=== PATIENT | female | born 1995 | race American Indian/Alaskan Native ===

== ENCOUNTER 2018-01-13 21:26 | Emergency (ER) | payer SELFPAY ==
[2018-01-13] MEDS ORDERED: TYLENOL ONE (22:37)
[2018-01-13] MEDS ORDERED: TYLENOL PO ONE (22:37)
[2018-01-13 23:03] LABS: Bilirubin,Urine NEG (Negative); Blood,Urine NEG (Negative); Color,Urine Yellow (Yellow); Mucus,Urine 1+ /HPF; Protein,Urine <15 mg/dL mg/dL (Negative); Urobilinogen,Urine < 2.0 mg/dL (<2.0)
[2018-01-13 23:10] LABS: HCG Qualitative,Urine Negative (Negative)
--- NOTE | 2018-01-13 23:50 | XRay Report ---
FINAL REPORT PROCEDURE: XR SPINE LUMBOSACRAL 2-3V TECHNIQUE: Lumbar spine radiographs, frontal and lateral views. CPT 05241 HISTORY: lower back pain COMPARISON: No prior studies are available for comparison. FINDINGS: Alignment: Normal . Vertebral body heights/Disk spaces: Normal . Fracture(s): None . Facets: Normal . Bone mineralization: Normal . IMPRESSION: Normal Examination
--- NOTE | 2018-01-14 02:34 | Emergency Department Report ---
ED General Adult HPI - General Chief complaint: Back Pain/Injury Stated complaint: LOWER BACK PAIN Time Seen by Provider: 01/14/18 01:30 Source: patient Mode of arrival: Ambulatory Limitations: No Limitations - History of Present Illness Initial comments: 22-year-old -[place] female comes in complaining of back pain and abdominal pain since Monday. Patient reports that she she has back pain that radiates to the abdominal. Patient reports that she is not had a bowel movement since Monday. She says she has nausea and no fever no chills. She reports that the pain can be sharp and achy intermittent better with lying on her stomach and movement makes it worse. Patient reports no past medical history currently takes no medications on a daily basis and has no known drug allergies. 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 -: days(s) (4) Location: back, abdomen Severity scale (0 -10): 6 Quality: aching, sharp Consistency: intermittent Improves with: rest (lying on stomach) Worsens with: movement Associated Symptoms: nausea/vomiting (no vomiting) Treatments Prior to Arrival: none - Related Data Previous Rx's Medication Instructions Recorded Last Taken Type Nitrofurantoin Monohyd/M-Cryst 100 mg PO BID #14 capsule 01/14/18 Unknown Rx [Macrobid 100 mg Capsule] traMADol [Ultram 50 MG tab] 50 mg PO Q6HR PRN #12 tablet 01/14/18 Unknown Rx Allergies Allergy/AdvReac Type Severity Reaction Status Date / Time No Known Allergies Allergy Verified 01/13/18 22:45 ED Review of Systems ROS: Stated complaint: LOWER BACK PAIN Other details as noted in HPI Constitutional: denies: chills, fever Eyes: denies: eye pain, eye discharge, vision change ENT: denies: ear pain, throat pain Respiratory: denies: cough, shortness of breath, wheezing Cardiovascular: denies: chest pain, palpitations Endocrine: no symptoms reported Gastrointestinal: abdominal pain, nausea Genitourinary: denies: urgency, dysuria, discharge Musculoskeletal: back pain Skin: denies: rash, lesions Neurological: denies: headache, weakness, paresthesias Psychiatric: denies: anxiety, depression Hematological/Lymphatic: denies: easy bleeding, easy bruising ED Past Medical Hx - Past Medical History Previous Medical History?: No - Surgical History Past Surgical History?: No - Social History Smoking Status: Never Smoker Substance Use Type: None - Medications Home Medications: Home Medications Medication Instructions Recorded Confirmed Last Taken Type Nitrofurantoin Monohyd/M-Cryst 100 mg PO BID #14 capsule 01/14/18 Unknown Rx [Macrobid 100 mg Capsule] traMADol [Ultram 50 MG tab] 50 mg PO Q6HR PRN #12 tablet 01/14/18 Unknown Rx ED Physical Exam - General Limitations: No Limitations General appearance: alert, in no apparent distress - Head Head exam: Present: atraumatic, normocephalic - Eye Eye exam: Present: normal appearance - ENT ENT exam: Present: mucous membranes moist - GI/Abdominal GI/Abdominal exam: Present: soft, normal bowel sounds. Absent: distended, tenderness - Extremities Exam Extremities exam: Present: normal inspection, full ROM - Back Exam Back exam: Present: normal inspection, full ROM, CVA tenderness (L) - Neurological Exam Neurological exam: Present: alert, oriented X3 - Psychiatric Psychiatric exam: Present: normal affect, normal mood - Skin Skin exam: Present: warm, dry, intact, normal color. Absent: rash ED Course Vital Signs 01/13/18 01/13/18 22:03 22:25 Temperature 98.5 F 98.5 F Pulse Rate 79 89 Respiratory 16 18 Rate Blood Pressure 118/75 118/75 O2 Sat by Pulse 100 100 Oximetry ED Medical Decision Making - Radiology Data Radiology results: report reviewed, image reviewed FINAL REPORT PROCEDURE: XR ABDOMEN 1V AP TECHNIQUE: Abdominal radiograph, single supine AP view. HISTORY: abdominal pain nausea COMPARISON: No prior studies are available for comparison. FINDINGS: Bowel gas pattern:Nonobstructive. Masses or calcifications:None. Bony structures:No significant abnormality. Other:None. IMPRESSION: No acute abnormality FINDINGS: Alignment: Normal . Vertebral body heights/Disk spaces: Normal . Fracture(s): None . Facets: Normal . Bone mineralization: Normal . IMPRESSION: Normal Examination Transcribed By: [facility] Dictated By: DARRICK ASIF MD Electronically Authenticated By: DARRICK ASIF MD Signed Date/Time: 01/13/18 2969 - Medical Decision Making Patient's been evaluated by this provider fast track. UA urine culture back x- ray KUB ordered. Critical care attestation.: If time is entered above; I have spent that time in minutes in the direct care of this critically ill patient, excluding procedure time. ED Disposition Clinical Impression: Back pain Qualifiers: Back pain location: thoracic back pain Chronicity: acute Back pain laterality: bilateral Qualified Code(s): M54.6 - Pain in thoracic spine UTI (urinary tract infection) Qualifiers: Urinary tract infection type: site unspecified Hematuria presence: without hematuria Qualified Code(s): N39.0 - Urinary tract infection, site not specified Disposition: TO HOME OR SELFCARE Is pt being admited?: No Does the pt Need Aspirin: No Condition: Stable Instructions: Urinary Tract Infection in Women (ED), Acute Low Back Pain (ED) Additional Instructions: Please complete antibiotics as prescribed. Take pain medication as prescribed. Symptoms persist or gets worse please follow up with her primary care provider. Prescriptions: Nitrofurantoin Monohyd/M-Cryst [Macrobid 100 mg Capsule] 100 mg PO BID #14 capsule traMADol [Ultram 50 MG tab] 50 mg PO Q6HR PRN #12 tablet PRN Reason: Pain Referrals: PRIMARY CARE, [Primary Care Provider] - 3-5 Days [facility] [Provider Group] - 3-5 Days Forms: Accompanied Note, Work/School Release Form(ED)
--- NOTE | 2018-01-14 03:02 | XRay Report ---
FINAL REPORT PROCEDURE: XR ABDOMEN 1V AP TECHNIQUE: Abdominal radiograph, single supine AP view. HISTORY: abdominal pain nausea COMPARISON: No prior studies are available for comparison. FINDINGS: Bowel gas pattern:Nonobstructive. Masses or calcifications:None. Bony structures:No significant abnormality. Other:None. IMPRESSION: No acute abnormality
[2018-01-14 04:07] VITALS: BP 111/57
== END 2018-01-14 03:30 | disposition home or self-care (01) ==
LOC: ED 21:26
DX: N39.0 Urinary tract infection, site not specified (principal)
CPT/HCPCS: 72100; 74018; 81001; 81025; 99284

== ENCOUNTER 2019-04-03 08:17 | Inpatient (IN) | payer MEDICAID ==
[2019-04-03] MEDS ORDERED: XYLOCAINE 2% INFILTRATI ONE ×2 (09:26→14:11)
[2019-04-03] MEDS ORDERED: BRETHINE SUB-Q PRN (09:26)
[2019-04-03] MEDS ORDERED: SUBLIMAZE IV PRN (09:26)
[2019-04-03] MEDS ORDERED: STADOL IV PRN (09:26)
[2019-04-03] MEDS ORDERED: ZOFRAN IV PRN ×2 (09:26→15:00)
[2019-04-03] MEDS ORDERED: AMPICILLIN/NS 2 GM/100 ML 2 GM/100 ML BAG IV ONE (09:26)
[2019-04-03] MEDS ORDERED: BRETHINE IVP PRN (09:26)
[2019-04-03] MEDS ORDERED: MINERAL OIL PO PRN (09:26)
--- NOTE | 2019-04-03 09:26 | History and Physical Report ---
History of Present Illness Date of examination: 04/03/19 Chief complaint: SROM clear fluid @ 0600 History of present illness: Pt is a 23yo BF EDC 04/06/19; EGA 39 4/7 weeks presents to L&D complaining of SROM clear fluid @ 0600 followed by irregular contractions. She received late care at [facility] since 36 weeks, but course has been unremarkable. records are available and GBS is Negative. Past History Past Medical History: no pertinent history Past Surgical History: no surgical history Social history: no significant social history, single - Obstetrical History Expected Date of Delivery: 04/06/19 Actual Gestation: 39 Week(s) 4 Day(s) Medications and Allergies Allergies Allergy/AdvReac Type Severity Reaction Status Date / Time No Known Allergies Allergy Verified 01/13/18 22:45 Home Medications Medication Instructions Recorded Confirmed Last Taken Type Vit-Fe Fumar-FA [ 1 tab PO QDAY 04/03/19 04/03/19 Unknown History Vitamin] Active Meds: Active Medications Lactated Ringer's (Lactated Ringers) 1,000 mls @ 125 mls/hr IV DIRECT KIN Review of Systems All systems: negative - Vital Signs Vital signs: Vital Signs Pulse BP 91 H 125/81 04/03/19 09:02 04/03/19 09:02 Temp Pulse Resp BP Pulse Ox 81 118/79 04/03/19 09:17 04/03/19 09:17 - Physical Exam Breasts: Positive: deferred Cardiovascular: Regular rate Lungs: Positive: Clear to auscultation Abdomen: Positive: normal appearance Genitourinary (Female): Positive: normal external genitalia Vagina: Positive: normal moisture Uterus: Positive: enlarged Extremities: Positive: normal - Obstetrical FHR: category 1 Uterine Contraction Monitor Mode: External Cervical Dilatation: 4 (per nurse) Cervical Effacement Percentage: 80 (per nurse) station: -1 Uterine Contraction Pattern: Regular Uterine Tone Measurement Phase: Contraction Uterine Contraction Intensity: Moderate Results Result Diagrams: 04/03/19 09:30 All other labs normal. Assessment and Plan - Patient Problems (1) 39 weeks gestation of Onset Date: 04/03/19 Current Visit: Yes Status: Acute Plan to address problem: A: IUP @ 39 4/7 weeks in labor P: Admit to L&D for expectant vaginal delivery
[2019-04-03 09:57] LABS: Basophils % (Auto) 0.5 % (0.0-1.8); Eosinophils # (Auto) 0.1 K/mm3 (0.0-0.4); Eosinophils % (Auto) 0.6 % (0.0-4.3); Hemoglobin 12.5 gm/dl (10.1-14.3); Lymphocytes # (Auto) 2.4 K/mm3 (1.2-5.4); Mean Corpuscular HGB Conc 35 % (30-34); Mean Corpuscular Volume 78 fl (79-97); Monocytes # (Auto) 0.8 K/mm3 (0.0-0.8); Platelet Count 334 K/mm3 (140-440); Red Blood Count 4.62 M/mm3 (3.65-5.03); Red Cell Distribution Width 15.1 % (13.2-15.2)
[2019-04-03] MEDS ORDERED: PITOCin/NS 30 UNIT/500ML 30 UNITS/500 ML BAG IV SCH ×2 (10:00)
[2019-04-03] MEDS ORDERED: PITOCin/NS 20 UNIT/1000ML DRIP 20 UNITS/1,000 ML BAG IV SCH ×2 (10:00→15:00)
[2019-04-03] MEDS ORDERED: LACTATED RINGERS 1,000 ML IV SCH ×2 (10:00)
[2019-04-03] MEDS ORDERED: AMPICILLIN/NS 1 GM/50 ML 1 GM/50 ML BAG IV SCH (13:27)
--- NOTE | 2019-04-03 14:25 | Procedure Note ---
OB Delivery Note - Delivery Date of Delivery: 04/03/19 Surgeon: RAMIN LIMA Estimated blood loss: other (150cc) - Vaginal Delivery presentation: vertex Delivery position: OA Intrapartum events: PROM->1hr before delivery, mult.variable deceleratio Delivery induction: none Delivery augmentation: pitocin Delivery monitor: external FHT, external uterine Route of delivery: Delivery placenta: spontaneous Delivery cord: 3 umbilical vessels Episiotomy: none Delivery laceration: 1st degree (perineal) Delivery repair: vicryl Anesthesia: local Delivery comments: delivered OA and placed on Mom's chest for [id number] bonding and delayed cord clamping, cut by Dad - Infant A at 1 minute: 8 at 5 minutes: 9 Gender: Female (3101gms)
[2019-04-03] MEDS ORDERED: TUCKS PAD TP PRN (15:00)
[2019-04-03] MEDS ORDERED: PHENERGAN PR PRN (15:00)
[2019-04-03] MEDS ORDERED: DERMOPLAST TP PRN (15:00)
[2019-04-03] MEDS ORDERED: TYLENOL PO PRN (15:00)
[2019-04-03] MEDS ORDERED: SODIUM CHLORIDE FLUSH SYRINGE 10 ML IV PRN (15:00)
[2019-04-03] MEDS ORDERED: LANSINOH TP PRN (15:00)
[2019-04-03] MEDS ORDERED: PHENERGAN PO PRN (15:00)
[2019-04-03] MEDS ORDERED: BENADRYL PO PRN (15:00)
[2019-04-03] MEDS: IBUPROFEN PO SCH (16:40)
[2019-04-03] MEDS: FEOSOL PO SCH (21:51)
[2019-04-03] MEDS: COLACE PO SCH (21:51)
[2019-04-03] MEDS ORDERED: DULCOLAX PR PRN (22:00)
[2019-04-03] MEDS ORDERED: MILK OF MAGNESIA PO PRN (22:00)
[2019-04-04] MEDS: IBUPROFEN PO SCH ×3 (00:44→16:17)
[2019-04-04 01:14] LABS: Hematocrit 29.6 % (30.3-42.9); Hemoglobin 10.1 gm/dl (10.1-14.3)
[2019-04-04] MEDS ORDERED: BOOSTRIX IM ONE (06:00)
[2019-04-04] MEDS ORDERED: PRENATAL VITAMIN PO SCH (10:00)
[2019-04-04] MEDS: FEOSOL PO SCH (10:12)
[2019-04-04] MEDS: COLACE PO SCH (10:13)
[2019-04-04] MEDS: NORCO 5/325 PO PRN ×2 (10:16→16:16)
[2019-04-04] MEDS ORDERED: M-M-R II VACCINE SUB-Q ONE (11:00)
--- NOTE | 2019-04-04 14:03 | Progress Note ---
Assessment and Plan - Patient Problems (1) 39 weeks gestation of Onset Date: 04/03/19 Current Visit: Yes Status: Resolved (2) (normal spontaneous vaginal delivery) Onset Date: 04/04/19 Current Visit: Yes Status: Resolved Plan to address problem: A: S/P - PPD #1 Doing well Asymptomatic anemia - stable P: May go home today. Subjective - Subjective Date of service: 04/04/19 Principal diagnosis: s/p - PPD #1 Interval history: Pt is feeling well without complaints. Bleeding improved. Patient reports: appetite normal, voiding normally, pain well controlled, flatus, ambulating normally, no dizzy ambulation, no nauseated : doing well, nursing well, bottle feeding Objective - Vital Signs Latest vital signs: Vital Signs Temp Pulse Resp BP BP Pulse Ox 04/04/19 12:00 98.4 F 85 16 108/71 95 04/04/19 08:03 97.6 F 80 16 113/71 99 04/04/19 07:01 18 04/04/19 06:01 18 04/04/19 01:44 18 04/04/19 00:48 98.5 F 80 20 105/54 96 04/04/19 00:44 18 04/03/19 21:30 98.0 F 85 20 110/72 97 04/03/19 16:25 98 F 76 18 118/67 04/03/19 15:21 85 147/65 04/03/19 14:35 80 125/69 Intake and Output 04/03/19 04/04/19 04/04/19 22:59 06:59 14:59 Intake Total 520 720 Output Total 1000 Balance -480 720 Intake: Oral 300 360 Intake, Free Water 220 360 Output: Urine 1000 Void 1000 Other: Total, Intake Amount 300 360 Total, Output Amount 500 # Voids Void 1 1 - Exam Abdomen: Present: normal appearance, soft Uterus: Present: normal, firm, fundal height below umbilicus Extremities: Present: normal - Labs Labs: Abnormal lab results 04/04/19 Range/Units 00:57 Hct 29.6 L D (30.3-42.9) % Laboratory Tests 04/03/19 04/03/19 04/03/19 09:30 09:30 09:30 WBC 9.6 RBC 4.62 Hgb 12.5 Hct 36.0 MCV 78 L MCH 27 L MCHC 35 H RDW 15.1 Plt Count 334 Lymph % (Auto) 25.0 Ness % (Auto) 8.0 H Eos % (Auto) 0.6 Baso % (Auto) 0.5 Lymph # 2.4 Ness # 0.8 Eos # 0.1 Baso # 0.0 Seg Neutrophils % 65.9 Seg Neutrophils # 6.3 RPR Nonreactive Hep Bs Antigen HIV 1&2 Antibody Rapid HIV P24 Antigen Rubella IgG Antibody Blood Type AB POSITIVE Antibody Screen Negative 04/03/19 04/03/19 04/03/19 12:14 12:14 12:14 WBC RBC Hgb Hct MCV MCH MCHC RDW Plt Count Lymph % (Auto) Ness % (Auto) Eos % (Auto) Baso % (Auto) Lymph # Ness # Eos # Baso # Seg Neutrophils % Seg Neutrophils # RPR Hep Bs Antigen Non-reactive HIV 1&2 Antibody Rapid Non react HIV P24 Antigen Non react Rubella IgG Antibody Immune Blood Type Antibody Screen 04/04/19 04/04/19 04/04/19 00:57 00:57 00:57 WBC RBC Hgb 10.1 Hct 29.6 L D MCV MCH MCHC RDW Plt Count Lymph % (Auto) Ness % (Auto) Eos % (Auto) Baso % (Auto) Lymph # Ness # Eos # Baso # Seg Neutrophils % Seg Neutrophils # RPR Hep Bs Antigen Non-reactive HIV 1&2 Antibody Rapid Non react HIV P24 Antigen Non react Rubella IgG Antibody Blood Type Antibody Screen
--- NOTE | 2019-04-04 14:04 | Discharge Summary ---
Providers - Providers Date of Admission: 04/03/19 10:02 Date of discharge: 04/04/19 Attending physician: RAMIN LIMA Primary care physician: RAMIN LIMA Hospitalization Reason for admission: active labor, IUP at term Delivery: Episiotomy: none Laceration: 1st degree Other procedures: none complications: none Discharge diagnosis: IUP at term delivered [place] baby: female Hospital course: Unremarkable. Condition at discharge: Good Disposition: DC-01 TO HOME OR SELFCARE - Discharge Diagnoses (1) 39 weeks gestation of Status: Resolved (2) (normal spontaneous vaginal delivery) Status: Resolved Plan - Discharge Medications Prescriptions: Benzocaine/Menthol [Dermoplast] 1 spray TP PRN PRN #1 can PRN Reason: Episiotomy Pain Ferrous Sulfate [Feosol 325 MG tab] 325 mg PO BID #60 tablet Ibuprofen [Motrin 600 MG tab] 600 mg PO Q6H #30 tablet Vit-Fe Fumar-FA [ Vitamin] 1 each PO QDAY #30 tablet - Provider Discharge Summary Activity: routine, no sex for 6 weeks, no heavy lifting 4 weeks, no strenuous exercise Diet: routine Instructions: routine Additional instructions: [] Smoking cessation referral if applicable(refer to patient education folder for contact #) [] Refer to [facility]'s [facility] Booklet Call your doctor immediately for: * Fever > 100.5 * Heavy vaginal bleeding ( >1 pad per hour) * Severe persistent headache * Shortness of breath * Reddened, hot, painful area to leg or breast * Drainage or odor from incision. * Keep incision clean and dry at all times and follow doctor's instructions regarding bathing/showering - Follow up plan Follow up: RAMIN LIMA MD [Primary Care Provider] - 6 Weeks
[2019-04-04 18:47] VITALS: BP 129/75
== END 2019-04-04 19:00 | disposition home or self-care (01) | DRG 775 ==
LOC: TRG 08:17 → LD 08:18 → TRG 08:57 → LD 10:02 → OB 16:17
PROVIDERS: ADMIT Obstetrics & Gynecology; ATTEND Obstetrics & Gynecology
PROC: 10E0XZZ Delivery of Products of Conception, External Approach (ICD-10-PCS; principal; 2019-04-03)
PROC: 0HQ9XZZ Repair Perineum Skin, External Approach (ICD-10-PCS; 2019-04-03)
PROC: 3E0234Z Introduction of Serum, Toxoid and Vaccine into Muscle, Percutaneous Approach (ICD-10-PCS; 2019-04-04)
DX: O42.02 Full-term premature rupture of membranes, onset of labor within 24 hours of rupture (principal); Z3A.39 39 weeks gestation of pregnancy; Z37.0 Single live birth; Z23 Encounter for immunization; O76 Abnormality in fetal heart rate and rhythm complicating labor and delivery; O70.0 First degree perineal laceration during delivery; D64.9 Anemia, unspecified; O90.81 Anemia of the puerperium
CPT/HCPCS: 36415; 59025; 85014; 85018; 85025; 86592; 86706; 86762; 86850; 86900; 86901; 87806; G0378; J0290; J0595; J2590; J7120